=== PATIENT | female | born 1975 | race Caucasian/White ===

== ENCOUNTER → 2017-11-06 | Outpatient (CLI) | payer OTHER ==
[~2017-11-06] MED LIST: ACCUNEB SO1.25 MG/1; ACCUNEB SO1.25 MG/1 INH; ALBUTEROL2.5 MG/0.5; ALLEGRA ALLERG180 MG; BACTRIM DS TAB1 EACH PO; BIRTH CONTROL; CIPRO HC OTIC S10 ML OTIC; CIPRO250 MG PO; CLARITIN10 MG PO; CLEOCIN HCL300 MG PO; DAY TIME COLD-296 ML; FLEXERIL PO; FLONASE 0.05%50 MCG NASAL; FLONASE 0.05%50 MCG NS; IBUPROFEN 800800 MG PO; METROGEL-VAGINA70 GM VG; MOTION RELIEF25 MG PO; NOHOMEMEDICATIONS; NORCO 5-325 TA1 EACH PO; PHENERGAN 25 MG25 M1 PO; PHENERGAN50 MG RC; PROAIR HFA8.5 GM IH; PROZAC10 MG PO; TESSALON PERLE100 MG PO; ULTRAM 50MG TAB50 MG PO; VENTOLIN HFA 1818 GM INH; VICODIN 5-5001 EACH PO; ZPAK PO
== END ==
LOC: RAD 11:21
DX: R91.1 Solitary pulmonary nodule (principal); L92.8 Other granulomatous disorders of the skin and subcutaneous tissue

== ENCOUNTER 2018-08-30 18:33 | Emergency (ER) | payer OTHER ==
[~2018-08-30] VITALS: Ht 170.2 cm; Wt 67.1 kg
[2018-08-30] MEDS ORDERED: WELLBUTRIN SR150 MG PO (18:54)
[2018-08-30] MEDS ORDERED: IBUPROFEN 800800 M1 PO (19:17)
[2018-08-30] MEDS ORDERED: MOBIC7.5 MG PO (19:28)
[2018-08-30 19:33] VITALS: BP 132/90
== END 2018-08-30 19:37 | disposition home or self-care (01) ==
LOC: ER 18:33
DX: S80.01XA Contusion of right knee, initial encounter (principal); J45.909 Unspecified asthma, uncomplicated; Z87.442 Personal history of urinary calculi; Z86.2 Personal history of diseases of the blood and blood-forming organs and certain disorders involving the immune mechanism; Z88.4 Allergy status to anesthetic agent; Z88.6 Allergy status to analgesic agent; Z88.5 Allergy status to narcotic agent; Z91.041 Radiographic dye allergy status; Z88.0 Allergy status to penicillin; Z88.2 Allergy status to sulfonamides; Z87.891 Personal history of nicotine dependence; W01.198A Fall on same level from slipping, tripping and stumbling with subsequent striking against other object, initial encounter; Y93.89 Activity, other specified; Y92.89 Other specified places as the place of occurrence of the external cause; Y99.8 Other external cause status

== ENCOUNTER 2021-09-11 09:31 | Emergency (ER) | payer OTHER ==
[~2021-09-11] VITALS: Ht 170.2 cm; Wt 68.0 kg
[~2021-09-11 09:31] MED LIST changes: +IBUPROFEN 800800 M1 PO; +MOBIC7.5 MG PO; +WELLBUTRIN SR150 MG PO
[2021-09-11] MEDS ORDERED: PROZAC20 MG PO (09:41)
[2021-09-11 10:00] LABS: ABSOLUTE NEUTROPHILS 4.2 thou/uL (1.4-8.2); BASOPHILS 1.2 % (0.0-2.0); EOSINOPHILS 4.4 % (0.0-3.0); HEMATOCRIT 39.7 % (37.0-47.0); MCH 29.5 pg (26.0-34.0); MCHC 32.8 g/dL (28.0-37.0); PLATELET COUNT 301 thou/uL (150-400); POLYS 61.4 % (36.0-66.0); RBC 4.41 mil/uL (4.20-5.00); RDW 14.4 % (10.5-14.5); WBC 6.8 thou/uL (4.0-11.0)
[2021-09-11 10:11] LABS: ANION GAP 9 mmol/L (7-16); BUN 13 mg/dL (7-18); CALCIUM 8.6 mg/dL (8.5-10.1); CHLORIDE 103 mmol/L (98-107); CO2 26 mmol/L (21-32); CREATININE 0.6 mg/dL (0.6-1.0); GLUCOSE 94 mg/dL (74-106); POTASSIUM 4.4 mmol/L (3.5-5.1); SODIUM 138 mmol/L (136-145)
[2021-09-11 10:18] LABS: ALBUMIN 3.5 g/dL (3.4-5.0); DIRECT BILIRUBIN < 0.1 mg/dL (<0.1-0.2); LIPASE 92 U/L (73-393); SGOT 16 U/L (15-37); SGPT 21 U/L (14-59); TOTAL BILIRUBIN 0.2 mg/dL (0.2-1.0); TOTAL PROTEIN 6.6 g/dL (6.4-8.2)
--- NOTE | 2021-09-11 12:59 | EKG ---
[place] [address] [facility] [place] [address] ELECTROCARDIOGRAM REPORT Name: LINDA ROJAS [facility] [id number] Admission: 09/11/21 Attend Phys: Discharge: Date of : 71 Report #: [id number] [facility] ED Test Date: 2021-09-11 Test Time: 09:34:05 Pat Name: LINDA ROJAS Department: Room: Gender: F Management Trainer: NOLBERTO : 1975 Requested By: Crow Trevino Order Number: [id number] MD: Bright Tanner Measurements Intervals [place] Rate: 82 P: 55 [place]: 145 QRS: -4 QRSD: 100 T: 45 QT: 390 QTc: 456 Interpretive Statements Sinus rhythm Low voltage, precordial leads Compared to ECG 05/22/2012 15:18:14 Myocardial infarct finding no longer present Electronically Signed On 09-11-2021 12:58:39 [employer] by Bright Tanner [email or web address] <ELECTRONICALLY SIGNED> By: Bright Tanner MD, [facility] 09/11/21 1258 0934 3 Bright Tanner MD, FACC /EPI
[2021-09-11 13:12] VITALS: BP 140/95
== END 2021-09-11 13:13 | disposition home or self-care (01) ==
LOC: ER 09:31
PROVIDERS: Student in an Organized Health Care Education/Training Program
DX: R10.11 Right upper quadrant pain (principal); J45.909 Unspecified asthma, uncomplicated; Z87.442 Personal history of urinary calculi; Z79.51 Long term (current) use of inhaled steroids; Z79.899 Other long term (current) drug therapy; Z88.1 Allergy status to other antibiotic agents; Z88.5 Allergy status to narcotic agent; Z88.8 Allergy status to other drugs, medicaments and biological substances; Z88.6 Allergy status to analgesic agent; Z88.0 Allergy status to penicillin; Z88.2 Allergy status to sulfonamides; Z91.041 Radiographic dye allergy status; Z87.891 Personal history of nicotine dependence

== ENCOUNTER 2021-09-13 05:01 | Emergency (ER) | payer OTHER ==
[~2021-09-13] VITALS: Ht 162.6 cm; Wt 68.0 kg
[~2021-09-13 05:01] MED LIST changes: +PROZAC20 MG PO
[2021-09-13 05:37] LABS: URINE BILIRUBIN NEGATIVE (Negative); URINE BLOOD NEGATIVE (Negative); URINE CLARITY CLEAR; URINE COLOR YELLOW; URINE GLUCOSE-RANDOM* NEGATIVE (Negative); URINE KETONES NEGATIVE (Negative); URINE LEUKOCYTES-REFLEX NEGATIVE (Negative); URINE NITRITE-REFLEX NEGATIVE (Negative); URINE PROTEIN (DIPSTICK) NEGATIVE (Negative); URINE SPECIFIC GRAVITY 1.025 (1.005-1.035); URINE UROBILINOGEN 0.2 E.U./dl (0.2-1.0)
[2021-09-13 06:23] LABS: ABSOLUTE NEUTROPHILS 4.4 thou/uL (1.4-8.2); BASOPHILS 0.7 % (0.0-2.0); EOSINOPHILS 3.6 % (0.0-3.0); HEMATOCRIT 39.3 % (37.0-47.0); HEMOGLOBIN 12.9 gm/dL (12.0-15.0); LYMPHOCYTES 27.3 % (24.0-44.0); MCH 29.7 pg (26.0-34.0); MCHC 32.8 g/dL (28.0-37.0); MCV 90.7 fL (80.0-100.0); MONOCYTES 8.2 % (1.0-8.0); PLATELET COUNT 272 thou/uL (150-400); POLYS 60.2 % (36.0-66.0); RBC 4.33 mil/uL (4.20-5.00); WBC 7.3 thou/uL (4.0-11.0)
[2021-09-13 06:32] LABS: CALCIUM 8.4 mg/dL (8.5-10.1); CREATININE 0.5 mg/dL (0.6-1.0); POTASSIUM 4.6 mmol/L (3.5-5.1)
[2021-09-13 06:39] LABS: ALBUMIN 3.5 g/dL (3.4-5.0); TOTAL BILIRUBIN 0.1 mg/dL (0.2-1.0); TOTAL PROTEIN 6.4 g/dL (6.4-8.2)
[2021-09-13] MEDS ORDERED: PERCOCET 5-3251 EACH PO (08:07)
[2021-09-13] MEDS ORDERED: ACYCLOVIR 800800 MG PO (08:07)
[2021-09-13 08:32] VITALS: BP 143/86
== END 2021-09-13 08:38 | disposition home or self-care (01) ==
LOC: ER 05:01
PROVIDERS: Emergency Medicine
DX: R10.811 Right upper quadrant abdominal tenderness (principal); B02.9 Zoster without complications; F17.210 Nicotine dependence, cigarettes, uncomplicated; J45.909 Unspecified asthma, uncomplicated; Z88.0 Allergy status to penicillin; Z88.1 Allergy status to other antibiotic agents; Z88.2 Allergy status to sulfonamides; Z88.6 Allergy status to analgesic agent; Z88.5 Allergy status to narcotic agent; Z86.2 Personal history of diseases of the blood and blood-forming organs and certain disorders involving the immune mechanism; Z87.442 Personal history of urinary calculi; Z98.890 Other specified postprocedural states

== ENCOUNTER 2021-09-30 12:33 | Emergency (ER) | payer OTHER ==
[~2021-09-30] VITALS: Ht 170.2 cm; Wt 74.8 kg
[~2021-09-30 12:33] MED LIST changes: +ACYCLOVIR 800800 MG PO; +PERCOCET 5-3251 EACH PO
[2021-09-30 13:54] VITALS: BP 151/103
== END 2021-09-30 13:53 | disposition home or self-care (01) ==
LOC: ER 12:33
DX: K04.7 Periapical abscess without sinus (principal); J45.909 Unspecified asthma, uncomplicated; F17.210 Nicotine dependence, cigarettes, uncomplicated; Z86.2 Personal history of diseases of the blood and blood-forming organs and certain disorders involving the immune mechanism; Z87.442 Personal history of urinary calculi; Z98.890 Other specified postprocedural states; Z88.1 Allergy status to other antibiotic agents; Z88.6 Allergy status to analgesic agent; Z88.5 Allergy status to narcotic agent; Z88.2 Allergy status to sulfonamides; Z88.8 Allergy status to other drugs, medicaments and biological substances